=== PATIENT | male | born 1950 | race Caucasian/White ===

== ENCOUNTER 2022-12-29 05:01 | Observation (INO) ==
--- NOTE | 2022-12-03 10:16 | PAT Medication Instructions ---
Medication Instructions Date of Service December 03, 2022 Home Medications acetaminophen 500 mg tablet 1,000 mg PO BID amoxicillin 500 mg tablet 500 mg PO TID apixaban 5 mg tablet (Eliquis) 5 mg PO BID diclofenac sodium 1 % topical gel (Voltaren Arthritis Pain) 2 g topical QID PRN diphenhydramine 25 mg-acetaminophen 500 mg tablet (Acetaminophen PM) 2 tab PO HS hydrochlorothiazide 12.5 mg tablet 12.5 mg PO QPM hydrocodone 5 mg-acetaminophen 325 mg tablet 1 - 2 tab PO Q6H PRN lisinopril 10 mg tablet 10 mg PO QPM metoprolol succinate 25 mg tablet,extended release 24 hr 25 mg PO QPM multivitamin 1 tab PO QPM omeprazole 20 mg capsule,delayed release 20 mg PO QAM ASK your prescriber and surgeon apixaban 5 mg tablet (Eliquis) 5 mg PO BID(in order for spinal or epidural anesthesia, Eliquis needs to be stopped 72 hours/3 days before surgery. Please check if okay with doctor that prescribes this to you) STOP taking 24 hours before surgery diclofenac sodium 1 % topical gel (Voltaren Arthritis Pain) 2 g topical QID PRN Take morning of surgery With a small sip of water, OTHERWISE NOTHING TO EAT OR DRINK AFTER MIDNIGHT: acetaminophen 500 mg tablet 1,000 mg PO BID amoxicillin 500 mg tablet 500 mg PO TID hydrocodone 5 mg-acetaminophen 325 mg tablet 1 - 2 tab PO Q6H PRN(if needed) omeprazole 20 mg capsule,delayed release 20 mg PO QAM Take evening before surgery acetaminophen 500 mg tablet 1,000 mg PO BID amoxicillin 500 mg tablet 500 mg PO TID diphenhydramine 25 mg-acetaminophen 500 mg tablet (Acetaminophen PM) 2 tab PO HS hydrochlorothiazide 12.5 mg tablet 12.5 mg PO QPM hydrocodone 5 mg-acetaminophen 325 mg tablet 1 - 2 tab PO Q6H PRN(if needed) lisinopril 10 mg tablet 10 mg PO QPM metoprolol succinate 25 mg tablet,extended release 24 hr 25 mg PO QPM multivitamin 1 tab PO QPM Other Notes If you have any questions please call us at [phone] or [phone] or [phone] or [phone]
--- NOTE | 2022-12-03 15:03 | Anesthesiology Consultation ---
Date of Service December 03, 2022 Assessment & Plan (1) Encounter for pre-operative examination: - pending PCP response to optimization form. - pt reported several episodes of bright red blood per rectum in recent weeks. He denies contacting PCP. Case discussed with Dr. Marie who advised sending optimization form to PCP. - dental pain, on amoxicillin. Paula with surgeon's office made aware, she states she will further discuss with patient and surgeon. - Eliquis instructions: advised to check with prescriber if acceptable to hold x 3 days prior to surgery to receive neuraxial anesthesia. - cardiology 11/30/22 [facility]: "...moderate aortic root enlargement 4.6 cm with mild ascending aortic enlargement 4.2 cm...paroxysmal atrial fibrillation...paroxysmal afib...went for nuclear stress testing last week, which unfortunately was non diagnostic due to caffeine consumption prior to test...repeat stress images will be later this week...found to have paroxysmal afib on ZIO...dyspnea reported, but stable...Eliquis acceptable to hold for 2 days prior to right hip surgery...repeat stress images...future hip replacement surgery-await repeat nuclear stress images..." Cardiology clearance 12/02/22: "...repeat nuclear stress imaging was negative for inducible ischemia...no further cardiac testing warranted prior to planned orthopedic surgery..." - Outpatient joint assessment: Patient is currently scheduled for inpatient pathway. If re-evaluated pending system levels during current pandemic/surgeon requests outpatient pathway, patient is not acceptable candidate for outpatient joint program from anesthesia standpoint. Chart Review Chart Review: Pending: Refer to Additional Notes / Consult section and Patient seen in Pre Admission Testing Teaching & Discussion Pre-Anesthesia Teaching/Discussion Notes: Instructed NPO after midnight before surgery, except medications with 15 cc of water. Medication instructions provided according to the PAT guidelines. History Surgery Operation Date: 12/29/22 10:40 Proposed Procedures p Right Total Hip Arthroplasty - Chapo High MD Height/Weight Height: 5 ft 11 in Weight: 98 kg Allergies Allergy/AdvReac Type Severity Reaction Status Date / Time formaldehyde Allergy Rash Verified 12/03/22 09:33 Medications Home Medications Medication Instructions Recorded Confirmed Last Taken Wheeled Walker #1 ea 12/03/22 12/03/22 Unknown acetaminophen 500 mg tablet 1,000 mg PO BID 12/03/22 12/03/22 Unknown amoxicillin 500 mg tablet 500 mg PO TID 12/03/22 12/03/22 Unknown apixaban 5 mg tablet (Eliquis) 5 mg PO BID 12/03/22 12/03/22 Unknown diclofenac sodium 1 % topical gel 2 g topical QID PRN Pain 12/03/22 12/03/22 Unknown (Voltaren Arthritis Pain) diphenhydramine 25 2 tab PO HS 12/03/22 12/03/22 Unknown mg-acetaminophen 500 mg tablet (Acetaminophen PM) hydrochlorothiazide 12.5 mg tablet 12.5 mg PO QPM 12/03/22 12/03/22 Unknown hydrocodone 5 mg-acetaminophen 325 1 - 2 tab PO Q6H PRN Pain 12/03/22 12/03/22 Unknown mg tablet lisinopril 10 mg tablet 10 mg PO QPM 12/03/22 12/03/22 Unknown metoprolol succinate 25 mg 25 mg PO QPM 12/03/22 12/03/22 Unknown tablet,extended release 24 hr multivitamin 1 tab PO QPM 12/03/22 12/03/22 Unknown omeprazole 20 mg capsule,delayed 20 mg PO QAM 12/03/22 12/03/22 Unknown release Past Medical History Medical History (Updated 12/03/22 @ 15:17 by Qiana Catnu PA-C) Aortic root enlargement 4.6 cm, 4.2 mild ascending aortic enlargement Atrial enlargement, right Atrial fibrillation following with Dr. Xie. On eliquis/bb. Diverticulosis GERD (gastroesophageal reflux disease) controlled, stable per pt Hearing loss left ear History of sciatica HTN (hypertension) controlled, stable per pt IBS (irritable bowel syndrome) Neuropathy feet Pain, dental reason for abx Snores upcoming sleep study after surgery Patient denies h/o stroke, seizures, heart attack, heart failure, DM, blood clots or blood transfusions. Exercise / Class Metabolic Activity II 4-5 Yardwork/Stairs/Walk up hill (denies chest discomfort or shortness of breath with 1 FOS) Past Surgical History Surgical History (Updated 12/03/22 @ 15:14 by Qiana Cantu PA-C) History of arthroscopy of left knee History of carpal tunnel surgery of right wrist History of colonoscopy History of toe surgery for ingrown toenail S/P medial meniscectomy of left knee Past Anesthesia History Other (PONV) History of PONV History of PONV (denies needing scop patch) and Hx of Motion Sickness Social History Smoking Status: Former smoker Do You Dip or Chew Tobacco: No Smoking End Date: 30 years ago Hx Alcohol Use: Yes Alcohol type: beer, wine and hard liquor alcohol intake frequency: 0-2 drinks per day Hx Substance Use: Yes substance use type: marijuana (advised) Last Used Substance: Unknown Review of Systems Chronic nonproductive cough since starting lisinopril. Occasional palpitations, rare since starting treatment for afib. Patient denies chest pain, shortness of breath, dyspnea on exertion, witnessed apneas, fever, chills, and wheezing. Physical Exam Vital Signs Vitals BP 129/66 P 91 TEMP 98.1 SP02 94% on RA RESP 18 Physical Full cervical extension range of motion without pain TMD 3.5 finger breadths Mallampati Score 2 Dentition: several chipped, caps/crowns; denies loose teeth, implants or bridges Lungs: normal respiratory effort. Clear throughout to auscultation, no adventitious breath sounds Cardiac: regular rate and rhythm, no murmurs noted Carotid arteries: negative bruit bilat Lab Results Anesthesia Preop Results Results Anesthesia Widget: WBC 9.99 K/ul (4.8-10.8) 12/03/22 Hgb 15.1 g/dl (14.0-18.0) 12/03/22 Hct 43.6 % (42.0-52.0) 12/03/22 Plt 226 K/uL (130-400) 12/03/22 Na 140 mmol/L (136-145) 12/03/22 K 3.5 mmol/L (3.5-5.1) 12/03/22 Cl 105 mmol/L (98-107) 12/03/22 CO2 25 mmol/L (21-32) 12/03/22 BUN 19 mg/dl (6-23) 12/03/22 Creat 0.99 mg/dl (0.6-1.4) 12/03/22 Glucose Level 138 mg/dl (70-99(Fasting)) H 12/03/22 PT 10.4 Seconds (9.0-12.0) 12/03/22 PTT 32.5 Seconds (21.0-31.0) H 12/03/22 INR 1.0 (0.9-1.1) 12/03/22 Blood Type O Positive 12/03/22 Antibody Screen NEGATIVE 12/03/22 Testing Electrocardiogram Date: 12/03/22 Sinus rhythm with atrial runs (3-4 beats), rate 88 bpm Low voltage QRS Possible old inferior infarct Nonspecific ST abnormality anterolateral leads Chest X-Ray Date: 12/03/22 Cardiac silhouette is mildly enlarged. No pneumothorax, large pleural effusion or overt pulmonary edema. Mild right hemidiaphragm elevation with subsegmental right basilar atelectasis. Degenerative changes of the shoulders and spine. IMPRESSION: No acute process. Echocardiogram Date: 09/11/22 EF 55-59% Mild hypokinesis of mid and apical lateral wall Grade I diastolic dysfunction Moderate cLVH Moderately enlarged LA Mild mitral regurgitation Moderately enlarged aortic root at sinuses of Valsalva measuring 4.7 cm Mildly enlarged ascending aorta at 4.3 cm No significant change vs 08/06/21 echo Other Testing Event monitor 09/14/22 Predominant underlying rhythm: sinus rhythm Afib 5% burden ranging 76-176 bpm with associated symptomatic patient events Occasional isolated SVEs Rare SVE couplets and SVE triplets Occasional isolated VEs Rare VE couplets and VE triplets Ventricular bigeminy and trigeminy COVID-19 Risk Screen Screening Information COVID-19 Screen Date: 12/03/22 Exposure 21 Days Family/Household +COVID Last 21 Days: No Exposure 10 Days Any COVID Exposure Last 10 Days: No Symptoms Last 10 Days Experienced COVID Sx Last 10 Days: No + COVID 0-90 Days COVID + in Last 0-90 Days: No
[2022-12-29] MEDS ORDERED: ACETAMINOPHEN 500 MG TAB PO SCH (06:00)
[2022-12-29] MEDS ORDERED: FAMOTIDINE 20 MG TAB PO SCH (06:00)
[2022-12-29] MEDS ORDERED: TRANEXAMIC ACID 1,000 MG **IV Pre-op IV SCH (06:00)
[2022-12-29] MEDS ORDERED: ceFAZolin 2000MG 2,000 MG/15 ML SYR IV SCH (06:00)
[2022-12-29] MEDS ORDERED: CeleBREX 200 MG CAP PO SCH (06:00)
[2022-12-29] MEDS ORDERED: LR 60ML/HR IV SCH (06:00)
[2022-12-29] MEDS ORDERED: METOCLOPRAMIDE HCL 10 MG TABLET PO SCH (06:00)
[2022-12-29] MEDS ORDERED: LR 500ML BOLUS, THEN 15ML/HR IV SCH (06:00)
[2022-12-29] MEDS ORDERED: BUPIVACAINE 0.5 % 5 MG/1 ML PF 10ML VIAL ONE (06:26)
[2022-12-29] MEDS ORDERED: MIDAZOLAM HCL 1 MG/ML 2ML VIAL ONE (06:36)
[2022-12-29] MEDS ORDERED: fentaNYL citrate PF 100 MCG/2 ML VIAL ONE (06:36)
--- NOTE | 2022-12-29 06:47 | History & Physical Bridge Note ---
Date of Service December 29, 2022 History & Physical Bridge Note I have examined the patient, reviewed the History & Physical and in the interval since the performance of the History & Physical I have noted the following changes of clinical significance: no changes noted
[2022-12-29] MEDS ORDERED: BUPIVACAINE/EPINEPHRINE 0.5% MPF 1:200,000 30 ML VIAL ONE (06:48)
[2022-12-29] MEDS ORDERED: DEXAMETHASONE SOD INJ 4 MG/ML VIAL ONE (07:12)
[2022-12-29] MEDS ORDERED: ONDANSETRON INJ 2 MG/ML 2 ML VIAL ONE (07:12)
[2022-12-29] MEDS ORDERED: SUCCINYLCHOLINE 100MG/5ML SYR IV ONE (07:12)
[2022-12-29] MEDS ORDERED: ROCURONIUM BROMIDE 10 MG/ML 5 ML VIAL IV ONE (07:12)
[2022-12-29] MEDS ORDERED: PROPOFOL IV EMULSION 10 MG/ML 20 ML VIAL IV ONE (07:12)
[2022-12-29] MEDS ORDERED: LIDOCAINE 2% MPF LOCAL 5 ML VIAL INFIL ONE (07:12)
[2022-12-29] MEDS ORDERED: PHENYLEPHRINE 100MCG/ML 5ML SYR ONE (07:13)
[2022-12-29] MEDS ORDERED: ePHEDrine sulfate 50 MG/ML SYR ONE (07:13)
[2022-12-29] MEDS ORDERED: GLYCOPYRROLATE 0.2 MG/ML VIAL ONE (07:47)
[2022-12-29] MEDS ORDERED: NEOSTIGMINE METHYLSULFATE 1 MG/ML 10ML VIAL ONE (07:47)
[2022-12-29] MEDS ORDERED: PHENYLEPHRINE HCL 10 MG/ML VIAL ONE (08:10)
[2022-12-29] MEDS ORDERED: ePHEDrine sulfate 50 MG/ML AMP ONE (08:16)
--- NOTE | 2022-12-29 08:46 | Operative Report ---
PG Post Operative Report Pre & Post Diagnosis Operation Date: 12/29/22 07:00 Pre-Op Diagnosis: Right Hip Advanced Degenerative Joint Disease Post-Op Diagnosis: Right Hip Advanced Degenerative Joint Disease I identified the patient and participated in the time-out.: Yes Procedure Operation Date: 12/29/22 07:00 Actual Procedures p Right Total Hip Arthroplasty--Uncemented(Right) - Chapo High MD Surgeon Chapo High MD Workforce Management Consultant None Estimated Blood Loss 200 Findings Consistent with Post-Op Diagnosis Operative findings were advanced right hip DJD. He had a extensive grade 4 [id number] disease of the femoral head and acetabulum. Moderate-sized joint effusion. Specimens Right femoral head sent for pathology Drains None Anesthesia Type General Complications none Disposition Accompanied Patient To Recovery: No Indications Patient is a 72-year-old gentleman said a several history of increasing right hip pain discomfort unresponsive to conservative treatment. X-rays show advanced right hip arthritis which progressed over time. He elected proceed with surgical treatment. The patient is on Eliquis and took dose about 48 hours preoperatively so a general anesthetic was implemented. Description of Procedure Operative implants consist of: 1 Biomet G7 size 58 mm acetabular shell. 2. 6.5 cancellous acetabular screws 1 of 35 mm in length 1 of 30 mm length. 3. Waldron hole limiter. 4. Highly cross-linked polyethylene liner with a 58 mm outer diameter and 40 mm inner diameter. 5. DePuy Corail I size 11 KLA femoral stem. 6. +5/40 mm ceramic articular ball. The patient was taken the operating, identified, placed on the operating table supine position protectors were properly padded. IV antibiotics tried by anesthesia team. General anesthetic was implemented by the anesthesia team due to his use of Eliquis with last dose being 48 hours ago. The patient was then placed in the left lateral cubitus position. Axillary roll was placed. A Stulberg hip positioner was used for positioning. The right hip and leg were then prepped and draped in usual sterile fashion. A posterolateral approach to the right hip was then performed through a curvilinear incision centered over the greater trochanter. Sharp dissection was carried through subcutaneous tissue down to the IT band gluteal fascia the IT band gluteal fascia incised longitudinally in line with skin incision. The underlying greater bursa was excised. The piriformis and external rotators were tagged and taken off the posterior aspect of the hip joint capsule. Great care was taken throughout the procedure protect sciatic nerve at all times. Hip was internally rotated and dislocated. A femoral neck osteotomy cut was made with a Final Cut 15 mm above the lesser trochanter. Femoral head was removed and sent for pathology. The femur was retracted anteriorly. Attention drawn the acetabulum. The acetabular labrum was excised. The pulmonary fat was excised. Sequential reaming the acetabular was then performed again with a size 47 reamer and progressing up to 57. I did reamed a little bit with a 58 reamer and then a 58 mm cup was placed in about 40 degrees lateral opening and 20 degrees of anteversion. It was fixed with two 6.5 cancellous acetabular screws. An anterior acetabular osteophyte was removed. Trial liner was placed. Attention drawn the femur. The proximal femur was entered with cookie-cutter followed by canal finder. I then broached beginning with size 8 and progressed up to 11. Got excellent fit 11. Could not quite get this quite down to the calcar. Then trialed the hip and the +5 articular ball provided full stability in full extension and external rotation flexion to 90 degrees internal Tatian over 50 degrees. Leg length seemed appropriate and soft tissue tension seemed appropriate. We elect to place these implants. All trial implants were removed. An apex hole luminary was placed. Highly cross-linked polyethylene liner was placed. A size 11 KLA femoral stem was impacted in position. A +5/40 mm ceramic articular ball was placed. Hip was located. Once again found to be stable. Attention drawn toward closing. The wounds irrigated cosigns pulsatile lavage solution. I did inject locally with 60 cc of half percent Marcaine with epinephrine. Posterior capsule and external rotators were then repaired through drill holes in the posterior trochanter with #2 Tycron suture. The IT band gluteal fascia then closed with #1 PDS suture running fashion. Subcutaneous tissue then closed 2 layers the deep layer #1 Vicryl suture and subcutaneous tissues with 2-0 Dexon suture in a buried interrupted fashion. Skin was closed skin angi. Leg was then cleaned and dried and sterile dressed with Xeroform, 4 fours, ABD pad, foam tape was applied. The patient then brought out of general anesthesia and transferred to the recovery in stable condition. The patient tolerated the procedure well and there were no complications. I attest to the content of the Intraoperative Record and any orders documented therein. Any exceptions are noted below.
[2022-12-29] MEDS ORDERED: HYDROmorphone INJ 1 MG/ML SYRINGE IV PRN (09:04)
[2022-12-29] MEDS ORDERED: ATROPINE SULFATE 0.1 MG/ML 10ML SYR IV PRN (09:04)
[2022-12-29] MEDS ORDERED: ePHEDrine sulfate 50 MG/ML AMP IV PRN (09:04)
[2022-12-29] MEDS ORDERED: ONDANSETRON INJ 2 MG/ML 2 ML VIAL IV PRN ×2 (09:04→10:53)
[2022-12-29] MEDS ORDERED: fentaNYL citrate PF 100 MCG/2 ML VIAL IV PRN (09:04)
[2022-12-29] MEDS ORDERED: NALOXONE HCL 0.4 MG/1 ML VIAL/CARP IV PRN ×2 (09:04→10:53)
[2022-12-29] MEDS ORDERED: PROMETHAZINE HCL 12.5 MG in SODIUM CHLORIDE 0.9% 50 ML IV PRN (09:04)
[2022-12-29] MEDS ORDERED: FLUMAZENIL 0.1 MG/1 ML 10 ML VIAL IV PRN (09:04)
[2022-12-29] MEDS ORDERED: METOPROLOL TARTRATE 1 MG/ML VIAL IV ONE (09:18)
[2022-12-29] MEDS: METOPROLOL TARTRATE 1 MG/ML VIAL IV PRN ×5 (09:19→09:49)
--- NOTE | 2022-12-29 09:32 | XRay Report ---
XR hip 1V RT w pelvis CLINICAL HISTORY: IN PACU - Post Surgical TECHNIQUE: 2 views of the right hip and single frontal view of the pelvis were obtained. Comparison: Comparison is made to hip radiographs November 26, 2022 FINDINGS: Patient is status post total hip arthroplasty with expected postsurgical changes including soft tissu e swelling and subcutaneous emphysema. IMPRESSION: Expected postoperative appearance status post placement of total hip arthroplasty. ACT 112: Negative or not required by law. Electronically signed by: Jason Najera M.D. 12/29/2022 9:31 AM
--- NOTE | 2022-12-29 10:11 | Hospitalist Consultation ---
Date of Consultation December 29, 2022 Assessment & Plan (1) S/P total knee arthroplasty: (2) Degenerative joint disease of right hip: (3) HTN (hypertension): (4) Aortic root enlargement: (5) Atrial fibrillation with RVR: - Hospitalist consulted for onset of A-fib after surgical procedure, right TKA by Dr. High on 12/29/2022 -Trial of IV Lopressor 5 mg x 1, no effect, will try 1 more time if not may require rate controlling drip in PCU. - BP is slightly soft at 107/80 - Checking BMP, TSH and cbc now - Patient diagnosed with afib 1 month ago, has been maintaining on Eliquis 5 mg twice daily, metoprolol succinate 25 every afternoon. His last dose of Eliquis was on 12/27 in the morning. Due to this last time of dosing he was unable to have a spinal per anesthesia, instead had general - Will hold lisinopril, HCTZ for now. Pending course today resume metoprolol 25 mg QPM. - Alcohol use: 2 drinks daily (see HPI), pt denies hx of withdrawal and agrees to attempt to cut back on such due to newly diagnosed afib. Discussion held at bedside. - Smokes vape with marijuana daily 2-3x DVT ppx: teds, scds, resume eliquis per primary team CODE: Full Dispo: From home, remain in PCU overnight Thank you for involving us in the care of Mr. Olsen. If you have any questions or concerns please do not hesitate to call. At this time medicine will follow along. A total of 45 minutes were spent with greater than 50% of that time face to face with the patient, personally reviewing all current laboratories, imaging studies, past medication reconciliation, outpatient chart review, and discussion with specialists to collaborate care for the patient with attending. Please see attending documentation for corrections and/or additions. Supervising Physician Co-Signing Physician Notes Patient was seen and examined independently. Patient is in ICU. Earlier had rapid A fib and was placed on a low dose cardizem drip. Now in sinus rhythm. Will give his evening Toprol early and discontinue cardizem drip. Will hold HCTZ and lisinopril for now. Resume when BP has improved further History of Present Illness Reason for Consultation: Medical management, atrial fib Requesting Physician: Dr. High Attending Physician: Chapo High MD History of Present Illness This is a 72 yo M with PMhx of atrial fibrillation maintained on eliquis and metoprolol who presented to [facility] for elective TKA by Dr. High. He was diagnosed with this about 1 month ago. The patient reports that he has been taking A-fib and metoprolol for this past 1 month time since diagnosis consistently, it was found while he was being worked up for outpatient colonoscopy. He denies feeling A-fib with palpitations, lightheadedness or dizziness. His employment interviewer as an outpatient is Dr. Xie. He denies any shortness of breath, O2 is on in the PACU, but does not require any at home. He admits to drinking alcohol, 2 drinks daily with either 1 beer and a shot of [place] or a glass of sweet [place]. He admits to smoking cannabis via vape several times daily in the evening to help him relax. Other past medical history includes aortic root enlargement at 4.6 cm, HTN, diverticulosis, GERD, peripheral neuropathy. Allergies Allergy/AdvReac Type Severity Reaction Status Date / Time formaldehyde Allergy Rash Verified 12/29/22 05:28 Home Medications Medication Instructions Recorded Confirmed Type Wheeled Walker #1 ea 12/03/22 12/29/22 Rx acetaminophen 500 mg tablet 500 mg PO Q8H 12/03/22 12/29/22 History apixaban 5 mg tablet (Eliquis) 5 mg PO BID 12/03/22 12/29/22 History hydrochlorothiazide 12.5 mg tablet 12.5 mg PO QPM 12/03/22 12/29/22 History lisinopril 10 mg tablet 10 mg PO QAM 12/03/22 12/29/22 History metoprolol succinate 25 mg 25 mg PO QPM 12/03/22 12/29/22 History tablet,extended release 24 hr multivitamin 1 tab PO QPM 12/03/22 12/29/22 History omeprazole 20 mg capsule,delayed 20 mg PO QAM 12/03/22 12/29/22 History release Patient History Medical History (Updated 12/29/22 @ 12:02 by Ramon Haq MD) Aortic root enlargement 4.6 cm, 4.2 mild ascending aortic enlargement Atrial enlargement, right Chronic a-fib Diverticulosis GERD (gastroesophageal reflux disease) controlled, stable per pt Hearing loss left ear History of sciatica HTN (hypertension) controlled, stable per pt Hypokalemia IBS (irritable bowel syndrome) Neuropathy feet Pain, dental reason for abx Postoperative hypoxemia Snores upcoming sleep study after surgery Surgical History (Updated 12/29/22 @ 10:44 by Argenis Her PA-C) History of arthroscopy of left knee History of carpal tunnel surgery of right wrist History of colonoscopy History of toe surgery for ingrown toenail S/P medial meniscectomy of left knee Social History Smoking Status: Never smoker Smoking End Date: 30 years ago; Second Hand Exposure: No; Do You Dip or Chew Tobacco: No; Tobacco Cessation Education Requested by Patient: No Hx Alcohol Use: Yes Alcohol type: beer Hx Substance Use: Yes Last Used Substance: Unknown Preferred Language: Kinyarwanda Communication Ability: Effective Cabinet Worker Required: No Beliefs That Will Affect Care: None Current Living Situation: Spouse Feels Safe at Home: Yes Safety Concerns: Feels Safe At This Time Assistive Devices: Cane and Walker Review of Systems Review of Systems: Constitutional: No fever, sweats or chills Eyes: No diplopia, no worsening or blurred vision ENT: normal hearing, no trouble swallowing Respiratory: No cough, sputum, dyspnea at rest or on exertion Cardiovascular: No chest pain, tightness or palpitations Abdomen: No pain, nausea, vomiting, diarrhea or constipation Musculoskeletal: No joint pain, calf pain, swelling Neurologic: No weakness, numbness/tingling, or balance problems Psychiatric: No anxiety or depression Skin: No rash or itch Physical Exam Physical Exam: General: awake, alert, no apparent distress Head: Normocephalic, atraumatic ENT: PERRL, EOMI, no pharyngeal exudate, mucous membranes moist Chest: Clear to auscultation, on room air, no adventitious breath sounds Cardiac: irregularly irregular with HR in the 110-120s while at bedside, no murmur, no JVD, normal peripheral pulses, good capillary refill Abdominal: NABS x 4 quadrants, soft, nondistended, nontender to palpation, no rebound or guarding Extremities: Normal inspection, no peripheral edema or erythema, calfs nontender to palpation Psych: Normal mood and affect Neuro: AAO x 3, strength intact bilaterally and rated 5/5, no motor deficits, speech is clear, no peripheral sensory deficits Results & Data Results & Data ([facility]) Vital Signs (Past 12 Hours) Vital Signs Temp Pulse Pulse Pulse Resp BP BP 12/29/22 09:55 106 H 19 109/74 12/29/22 09:49 111 H 106/70 12/29/22 09:45 110 H 17 106/70 12/29/22 09:43 123 H 108/68 12/29/22 09:35 120 H 14 96/75 L 12/29/22 09:29 120 H 96/75 L 12/29/22 09:25 114 H 18 115/77 12/29/22 09:24 118 H 115/77 12/29/22 09:19 128 H 102/81 12/29/22 09:15 129 H 19 102/81 12/29/22 09:05 112 H 20 107/68 12/29/22 08:55 120 H 15 104/80 12/29/22 08:45 36.3 C L 114 H 16 109/73 12/29/22 05:40 36.5 C 69 20 133/85 Pulse Ox O2 Del Method O2 Flow Rate 12/29/22 09:55 94 Nasal Cannula 4 12/29/22 09:49 12/29/22 09:45 94 Nasal Cannula 4 12/29/22 09:43 12/29/22 09:35 95 Nasal Cannula 4 12/29/22 09:29 12/29/22 09:25 97 Nasal Cannula 4 12/29/22 09:24 12/29/22 09:19 12/29/22 09:15 95 Nasal Cannula 4 12/29/22 09:05 90 Nasal Cannula 4 12/29/22 08:55 92 Nasal Cannula 4 12/29/22 08:45 89 L Oxymask 10 12/29/22 05:40 95 Room Air
[2022-12-29] MEDS ORDERED: KETOROLAC 30 MG/ML VIAL ONE (10:12)
--- NOTE | 2022-12-29 10:23 | Anesthesiology Progress Note ---
Date of Service December 29, 2022 Anesthesia Post Procedure Vital Signs Vital Signs: Temp Pulse Pulse Pulse Resp BP BP 12/29/22 10:15 36.3 C L 116 H 19 108/83 12/29/22 10:05 133 H 17 99/74 L 12/29/22 09:55 106 H 19 109/74 12/29/22 09:49 111 H 106/70 12/29/22 09:45 110 H 17 106/70 12/29/22 09:43 123 H 108/68 12/29/22 09:35 120 H 14 96/75 L 12/29/22 09:29 120 H 96/75 L 12/29/22 09:25 114 H 18 115/77 12/29/22 09:24 118 H 115/77 12/29/22 09:19 128 H 102/81 12/29/22 09:15 129 H 19 102/81 12/29/22 09:05 112 H 20 107/68 12/29/22 08:55 120 H 15 104/80 12/29/22 08:45 36.3 C L 114 H 16 109/73 12/29/22 05:40 36.5 C 69 20 133/85 Pulse Ox O2 Del Method O2 Flow Rate 12/29/22 10:15 96 Nasal Cannula 4 12/29/22 10:05 94 Nasal Cannula 4 12/29/22 09:55 94 Nasal Cannula 4 12/29/22 09:49 12/29/22 09:45 94 Nasal Cannula 4 12/29/22 09:43 12/29/22 09:35 95 Nasal Cannula 4 12/29/22 09:29 12/29/22 09:25 97 Nasal Cannula 4 12/29/22 09:24 12/29/22 09:19 12/29/22 09:15 95 Nasal Cannula 4 12/29/22 09:05 90 Nasal Cannula 4 12/29/22 08:55 92 Nasal Cannula 4 12/29/22 08:45 89 L Oxymask 10 12/29/22 05:40 95 Room Air Pain Intensity Left Hip: Pain Intensity: 2 Transfer of Care Handoff Completed per policy Notes Mental Status: alert / awake / arousable Patient Amnestic to Procedure: Yes Nausea / Vomiting: adequately controlled Pain: adequately controlled Airway Patency, RR, SpO2: stable & adequate BP & HR: stable & adequate Hydration State: stable & adequate Anesthetic Complications: no major complications apparent Notes: Patient has Hx/o A Fib; was in SR pre and intraop; converted to AFib in PACU; Hospitalist and Automotive Mechanic have been contacted and consulted and have assumed medical care of Pt. Pt to be transferred to PCU.
--- NOTE | 2022-12-29 10:38 | Electrocardiogram Report ---
Test Reason : Blood Pressure : / mmHG Vent. Rate : 117 BPM Atrial Rate : 159 BPM P-R Int : 000 ms QRS Dur : 094 ms QT Int : 294 ms P-R-T Axes : 000 -05 255 degrees QTc Int : 410 ms Atrial fibrillation with rapid ventricular response Possible Old Inferior infarct (cited on or before 03-DEC-2022) Nonspecific ST abnormality Anterolateral leads Abnormal ECG When compared with ECG of 03-DEC-2022 15:36, Atrial fibrillation has replaced Sinus rhythm HR has increased by 29 bpm Confirmed by Marco Roman ([id number]) on 12/29/2022 10:38:34 AM Referred By: Chapo High Confirmed By:Marco Roman
[2022-12-29] MEDS ORDERED: ALUMINUM/MAGNESIUM SUSP 30 ML UDC PO PRN (10:53)
[2022-12-29] MEDS ORDERED: bisacodyL 10 MG SUPP PR PRN (10:53)
[2022-12-29] MEDS ORDERED: METOCLOPRAMIDE HCL INJ 5 MG/ML 2 ML VIAL IV PRN (10:53)
[2022-12-29] MEDS ORDERED: DOCUSATE SODIUM/SENNA 50/8.6MG TAB PO SCH (10:53)
[2022-12-29] MEDS ORDERED: MAGNESIUM HYDROXIDE SUSP 30 ML UDC PO PRN (10:53)
[2022-12-29] MEDS: DOCUSATE SODIUM 100 MG CAP PO SCH ×2 (11:13→20:03)
[2022-12-29 11:14] LABS: Hematocrit (blood only) 40.6 % (42.0-52.0); Hemoglobin 14.5 g/dl (14.0-18.0); Mean Corpuscular Hemoglobin 34.6 pg (25.0-34.0); Mean Corpuscular Hgb Conc 35.7 g/dL (32.0-36.0); Mean Corpuscular Volume 96.9 fL (80.0-100.0); Mean Platelet Volume 9.5 fL (9.4-12.4); Platelet Count 198 K/uL (130-400); RDW Coefficient of Variation 13.2 % (11.5-14.5); RDW Standard Deviation 47.2 fL (36.4-46.3); Red Blood Count 4.19 M/uL (4.70-6.10)
[2022-12-29] MEDS: traMADol HCL 50 MG TABLET PO PRN (11:15)
[2022-12-29] MEDS: SODIUM CHLORIDE 0.9% 1000ML 1,000 ML IV SCH ×2 (11:18→20:03)
[2022-12-29 11:26] LABS: BUN Creatinine Ratio 18.4 (10-20); Calcium 9.2 mg/dl (8.5-10.1); Creatinine Clr Calc Pharmacy 84.3 ml/min; Est GFR (African American) 89.5 ml/min; Est GFR (Non-African American) 77.3 ml/min; Potassium 3.2 mmol/L (3.5-5.1)
[2022-12-29] MEDS: MULTIVITAMIN TAB PO SCH (11:33)
[2022-12-29] MEDS: PANTOprazole 40 MG TAB PO SCH (11:33)
[2022-12-29] MEDS: TAMSULOSIN HCL 0.4 MG CAP PO SCH (11:39)
[2022-12-29] MEDS ORDERED: POTASSIUM CHLORIDE 20 MEQ/15 ML UDC PO STA (11:45)
--- NOTE | 2022-12-29 11:47 | Critical Care Consultation ---
Date of Consultation December 29, 2022 Assessment & Plan (1) Atrial fibrillation with RVR: Discussed with hospitalist service. They are going to start the patient on a Cardizem infusion. He is hemodynamically stable otherwise. TSH and CBC unremarkable. We will replace potassium as it is currently 3.2. Check magnesium level. Maintain potassium above 4 and magnesium above 2. (2) Postoperative hypoxemia: Obtain chest x-ray. Initiate incentive spirometry. Likely postoperative a telectasis. Patient relates a remote smoking history from age [age]. He was mostly a social smoker. Wean oxygen as able. (3) Degenerative joint disease of right hip: Status post right hip arthroplasty. Management per orthopedic surgery. Restart anticoagulation based on orthopedic surgery recommendations. (4) Hypokalemia: Replace electrolytes per protocol. Plan Disposition per primary service. Discussed with bedside nurse and hospitalist service. Thank you for allowing us to participate in the care of this patient. Please call with questions. History of Present Illness Reason for Consultation: "Atrial fibrillation" from Dr. High of orthopedics. Attending Physician: Chapo High MD History of Present Illness Electronic medical record reviewed in detail. History obtained from patient and his . 72-year-old male status post right total hip arthroplasty which was electively scheduled for today. Patient is chronically on Eliquis for atrial fibrillation and metoprolol. In the PACU he was requiring supplemental oxygen and was found to have atrial fibrillation with rapid ventricular response. Hospital service, cardiology and ICU were consulted for assistance in managing atrial fibrillation. Patient is hemodynamically stable aside for heart rates in the 130s. Respiratory rate 18. CBC with minimal leukocytosis likely reactive secondary to surgery. No significant anemia. BMP reveals mild hypokalemia. TSH unremarkable. Patient relates that he was supposed to stop his Eliquis 72 hours prior to the procedure but only stopped 48 hours prior to. He ended up getting general anesthesia as opposed to spinal anesthesia. Preoperative chest x-ray 12/03/2022 revealed mild right hemidiaphragm elevation and atelectasis. Patient is resting comfortably at this time with supplemental oxygen. He is eating his lunch. His is at bedside. He denies any shortness of breath, cough, fevers, chills or night sweats. He does have soreness to his right knee and hip region. Echo 09/11/2022 with an LV 55- 59%. Grade 1 diastolic dysfunction. Aortic root dilation of 4.3 cm and increased to 4.7 cm with Valsalva. Allergies Allergy/AdvReac Type Severity Reaction Status Date / Time formaldehyde Allergy Rash Verified 12/29/22 05:28 Home Medications Medication Instructions Recorded Confirmed Type Wheeled Walker #1 ea 12/03/22 12/29/22 Rx acetaminophen 500 mg tablet 500 mg PO Q8H 12/03/22 12/29/22 History apixaban 5 mg tablet (Eliquis) 5 mg PO BID 12/03/22 12/29/22 History hydrochlorothiazide 12.5 mg tablet 12.5 mg PO QPM 12/03/22 12/29/22 History lisinopril 10 mg tablet 10 mg PO QAM 12/03/22 12/29/22 History metoprolol succinate 25 mg 25 mg PO QPM 12/03/22 12/29/22 History tablet,extended release 24 hr multivitamin 1 tab PO QPM 12/03/22 12/29/22 History omeprazole 20 mg capsule,delayed 20 mg PO QAM 12/03/22 12/29/22 History release Patient History Medical History (Updated 12/29/22 @ 12:02 by Ramon Haq MD) Aortic root enlargement 4.6 cm, 4.2 mild ascending aortic enlargement Atrial enlargement, right Chronic a-fib Diverticulosis GERD (gastroesophageal reflux disease) controlled, stable per pt Hearing loss left ear History of sciatica HTN (hypertension) controlled, stable per pt Hypokalemia IBS (irritable bowel syndrome) Neuropathy feet Pain, dental reason for abx Postoperative hypoxemia Snores upcoming sleep study after surgery Surgical History (Updated 12/29/22 @ 10:44 by Argenis Her PA-C) History of arthroscopy of left knee History of carpal tunnel surgery of right wrist History of colonoscopy History of toe surgery for ingrown toenail S/P medial meniscectomy of left knee Social History Smoking Status: Never smoker Smoking End Date: 30 years ago; Second Hand Exposure: No; Do You Dip or Chew Tobacco: No; Tobacco Cessation Education Requested by Patient: No Hx Alcohol Use: Yes Alcohol type: beer Hx Substance Use: Yes Last Used Substance: Unknown Preferred Language: Belgian Communication Ability: Effective Vp Publisher Development Required: No Beliefs That Will Affect Care: None Current Living Situation: Spouse Feels Safe at Home: Yes Safety Concerns: Feels Safe At This Time Assistive Devices: None Review of Systems Review of Systems: All systems reviewed & are unremarkable except as noted in HPI & below Physical Exam Physical Exam: Constitutional: Patient appears to be of their stated age. Patient is in no apparent distress. Patient is well-developed. Eyes: Pupils are equal round and reactive to light. Conjunctivae are normal. Anicteric sclera. Ears nose, mouth and throat: Deferred. Neck: Trachea is midline. Visual inspection is normal. Respiratory: Mild expiratory wheeze in the lower lobes. Diminished. Cardiovascular: Irregularly irregular. Tachycardic. No murmurs. No edema. Gastrointestinal: Normal bowel sounds, soft, nontender and nondistended. No hepatosplenomegaly noted. Musculoskeletal: No cyanosis. Patient is able to move all extremities. Strength is 5 out of 5 in the upper and lower extremities. Skin: No rashes, warm dry and intact. Neurologic: No obvious focal neurological deficits seen. Psychiatric: Alert and oriented x3 with a euthymic affect. Results & Data Results & Data ([facility]) Vital Signs (Past 12 Hours) Vital Signs Temp Pulse Pulse Pulse Resp BP BP 12/29/22 10:59 36.5 C 133 H 18 121/80 12/29/22 10:30 127 H 17 107/80 12/29/22 10:15 36.3 C L 116 H 19 108/83 12/29/22 10:05 133 H 17 99/74 L 12/29/22 09:55 106 H 19 109/74 12/29/22 09:49 111 H 106/70 12/29/22 09:45 110 H 17 106/70 12/29/22 09:43 123 H 108/68 12/29/22 09:35 120 H 14 96/75 L 12/29/22 09:29 120 H 96/75 L 12/29/22 09:25 114 H 18 115/77 12/29/22 09:24 118 H 115/77 12/29/22 09:19 128 H 102/81 12/29/22 09:15 129 H 19 102/81 12/29/22 09:05 112 H 20 107/68 12/29/22 08:55 120 H 15 104/80 12/29/22 08:45 36.3 C L 114 H 16 109/73 12/29/22 05:40 36.5 C 69 20 133/85 Pulse Ox O2 Del Method O2 Flow Rate 12/29/22 10:59 94 Nasal Cannula 4 12/29/22 10:30 95 Nasal Cannula 4 12/29/22 10:15 96 Nasal Cannula 4 12/29/22 10:05 94 Nasal Cannula 4 12/29/22 09:55 94 Nasal Cannula 4 12/29/22 09:49 12/29/22 09:45 94 Nasal Cannula 4 12/29/22 09:43 12/29/22 09:35 95 Nasal Cannula 4 12/29/22 09:29 12/29/22 09:25 97 Nasal Cannula 4 12/29/22 09:24 12/29/22 09:19 12/29/22 09:15 95 Nasal Cannula 4 12/29/22 09:05 90 Nasal Cannula 4 12/29/22 08:55 92 Nasal Cannula 4 12/29/22 08:45 89 L Oxymask 10 12/29/22 05:40 95 Room Air Coding Level of Care Code 43627 IN/OBS CONSULT LVL 4,60M Diagnoses Atrial fibrillation with RVR I48.91 Postoperative hypoxemia R09.02; Z98.890 Degenerative joint disease of right hip M16.11 Hypokalemia E87.6
[2022-12-29] MEDS ORDERED: dilTIAZem HCl 5 MG/ML 5 ML VIAL IV STA (12:06)
[2022-12-29] MEDS ORDERED: STAT IV Infusion **Titration per Protocol STA (12:06)
[2022-12-29] MEDS: POTASSIUM CHLORIDE / WTR 10 MEQ/100 ML PLCT IV SCH ×2 (12:09→13:12)
[2022-12-29] MEDS: HYDROmorphone INJ 0.5 MG/0.5 ML SYR IV PRN ×3 (12:10→20:03)
[2022-12-29] MEDS ORDERED: dilTIAZem HCL 125 MG in DEXTROSE 5% 100 ML IV SCH (12:15)
--- NOTE | 2022-12-29 12:53 | XRay Report ---
SINGLE VIEW CHEST CLINICAL HISTORY: Postoperative hypoxia FINDINGS: An AP, portable, upright chest radiograph is compared to study dated 12/03/2022. The examinat ion is degraded by portable technique and apical lordotic positioning. The heart is enlarged. The pul monary vasculature is noncongested. Chronic interstitial thickening is similar to previous. There is bibasilar scarring/atelectasis. The lungs and pleural spaces are otherwise clear. No pneumothorax is seen. The skeletal structures are osteopenic. The bony thorax is grossly intact. IMPRESSION: Cardiomegaly with no acute cardiopulmonary abnormality identified. ACT 112: Negative or not required by law. Electronically signed by: Ramesh Barrett M.D. 12/29/2022 12:52 PM
[2022-12-29 13:41] LABS: Magnesium 1.8 mg/dl (1.7-2.4)
[2022-12-29] MEDS ORDERED: TRANEXAMIC ACID / 0.7% NACL 1,000 MG/100 ML BAG IV SCH (14:45)
[2022-12-29] MEDS: ceFAZolin 2000MG 2,000 MG/15 ML SYR IV SCH ×2 (14:53→23:06)
[2022-12-29] MEDS: ACETAMINOPHEN 500 MG TAB PO SCH ×2 (14:53→23:06)
[2022-12-29] MEDS: KETOROLAC TROMETHAMINE 15 MG/ML VIAL IV SCH ×2 (17:02→23:05)
[2022-12-29] MEDS: ASCORBIC ACID 500 MG TAB PO SCH (17:03)
[2022-12-29] MEDS ORDERED: METOPROLOL SUCC 25MG EXT REL TAB PO SCH ×2 (18:30→21:00)
[2022-12-29] MEDS ORDERED: NON-FORMULARY MEDICATION (Multivitamin Tablet) PO SCH (21:00)
[2022-12-29] MEDS ORDERED: lisinopril 10 MG TAB PO SCH (21:00)
[2022-12-29] MEDS ORDERED: SENNA 8.6 MG TAB PO SCH (21:00)
[2022-12-29] MEDS ORDERED: hydroCHLOROthiazide 25 MG TAB PO SCH (21:00)
[2022-12-30] MEDS: HYDROmorphone INJ 0.5 MG/0.5 ML SYR IV PRN ×2 (00:47→08:01)
[2022-12-30 05:17] LABS: Basophils # (auto) 0.02 K/uL (0-0.2); Basophils % (auto) 0.2 %; Hematocrit (blood only) 34.7 % (42.0-52.0); Hemoglobin 12.1 g/dl (14.0-18.0); Immature Granulocytes # (auto) 0.09 K/uL (0.01-0.20); Immature Granulocytes % (auto) 0.7 %; Lymphocytes # (auto) 1.29 K/uL (1.2-3.4); Lymphocytes % (auto) 10.1 %; Mean Corpuscular Hemoglobin 34.9 pg (25.0-34.0); Mean Corpuscular Hgb Conc 34.9 g/dL (32.0-36.0); Mean Platelet Volume 9.5 fL (9.4-12.4); Monocytes # (auto) 0.82 K/uL (0.11-0.59); Monocytes % (auto) 6.4 %; Neutrophils # (auto) 10.55 K/uL (1.40-6.50); Neutrophils % (auto) 82.6 %; Platelet Count 183 K/uL (130-400); RDW Coefficient of Variation 13.6 % (11.5-14.5); RDW Standard Deviation 49.8 fL (36.4-46.3); Red Blood Count 3.47 M/uL (4.70-6.10); White Blood Count 12.77 K/ul (4.8-10.8)
[2022-12-30] MEDS: ACETAMINOPHEN 500 MG TAB PO SCH (05:40)
[2022-12-30] MEDS: KETOROLAC TROMETHAMINE 15 MG/ML VIAL IV SCH ×2 (05:40→11:16)
[2022-12-30 05:54] LABS: BUN Creatinine Ratio 22.2 (10-20); Calcium 8.9 mg/dl (8.5-10.1); Creatinine Clr Calc Pharmacy 91.8 ml/min; Est GFR (African American) 99.2 ml/min; Est GFR (Non-African American) 85.6 ml/min; Potassium 4.5 mmol/L (3.5-5.1)
[2022-12-30] MEDS ORDERED: fentaNYL citrate PF 100 MCG/2 ML VIAL ONE (06:36)
[2022-12-30] MEDS ORDERED: MIDAZOLAM HCL 1 MG/ML 2ML VIAL ONE (06:36)
[2022-12-30] MEDS: MULTIVITAMIN TAB PO SCH (07:53)
[2022-12-30] MEDS: PANTOprazole 40 MG TAB PO SCH (07:54)
[2022-12-30] MEDS: ASCORBIC ACID 500 MG TAB PO SCH (07:54)
[2022-12-30] MEDS: TAMSULOSIN HCL 0.4 MG CAP PO SCH (07:55)
[2022-12-30] MEDS: DOCUSATE SODIUM 100 MG CAP PO SCH (07:55)
[2022-12-30] MEDS ORDERED: dexAMETHasone 10 MG in SYRINGE 0 ML IV SCH (08:00)
[2022-12-30] MEDS ORDERED: APIXABAN 2.5 MG TAB PO SCH (09:00)
[2022-12-30] MEDS ORDERED: METOPROLOL SUCC 25MG EXT REL TAB PO SCH (09:00)
[2022-12-30] MEDS: traMADol HCL 50 MG TABLET PO PRN (10:10)
--- NOTE | 2022-12-30 13:18 | Progress Notes ---
DATE OF SERVICE: 12/30/2022. SUBJECTIVE: A 72-year-old gentleman, postoperative day 1 from right total hip replacement. He devel oped rapid atrial fibrillation in the recovery room, was sent to the PCU/ICU for recovery. He has do ne well overnight. He has been given beta martinez and heart rate has come down nicely. He has got s ome mild to moderate pain at best. Therapy went well. No chest pain or shortness of breath. Not fe eling dizzy or lightheaded. OBJECTIVE: VITAL SIGNS: Temperature 36.6. Vital signs are stable. GENERAL: Shows a pleasant middle-aged male. He is sitting up in his bedside chair when I visited [facility] today. EXTREMITIES: Examination of the right hip reveals the dressing to be clean, dry and intact. Leg erlin gths were equal. He can dorsiflex and plantarflex his foot appropriately. He is neurologically inta ct. LABORATORY DATA: Hemoglobin 12.1. Hematocrit 34.7. White cell count 12.77. Electrolytes are stabl e. ASSESSMENT: A 72-year-old gentleman, postoperative day 1 from a right hip replacement with a rapid v entricular rate in the recovery room. He has been given a beta martinez. Heart rate has come down ni krzysztof. He is quite comfortable. Therapy went well. PLAN: 1. DVT prophylaxis including thigh-high TEDs, SCDs and back on his anticoagulation. We will put him on a lower dose while in the hospital and discharge him on his standard dose of Eliquis. 2. PT/OT, weightbear as tolerated. Right total hip protocol. 3. Pain control, doing okay with current pain regimen. 4. Disposition: Plan to discharge to home with some home health once medically stable. He is ortho pedically okay to go any time. He did well in therapy. We will check with the medicine doctors. If okay, probably discharge today. Job ID: [id number]
--- NOTE | 2022-12-30 15:29 | Hospitalist Progress Note ---
Date of Service December 30, 2022 Assessment & Plan (1) S/P total knee arthroplasty: (2) Degenerative joint disease of right hip: Plan: S/P right TKA by Dr. High on 12/29/2022 No postop complication Continue physical therapy and occupational therapy Continue incentive spirometry Hgb 12.1 (3) HTN (hypertension): Plan: BP stable Continue metoprolol, Lisinopril and HCTZ on discharge (4) Aortic root enlargement: (5) Atrial fibrillation with RVR: Plan: Possible related to postop right hip total knee placement Trial of IV Lopressor 5 mg x 1 and was starting on Cardizem drip for short time, then discontinued He has been on NSR since yesterday afternoon Continue to be on NSR Continue monitor metoprolol and Eliquis Will arrange for outpatient follow up with his cardiology Alcohol use Marijuana use Counseling on alcohol and Marijuana cessation Continue monitor DVT ppx: teds, scds, resume eliquis per primary team CODE: Full Disposition Stable from medicine standpoint to discharge Thank you for involving us in the care of Mr. Vyas. If you have any questions or concerns please do not hesitate to call. Admission and Anticipated Discharge Date Admission Date: December 29, 2022 Subjective Pt was seen and examined for follow up of afib and postop right total knee replacement Sitting in chair with no acute distress with at bedside Pt said that he feels good. He said that he was able to participate to physical therapy Tele monitor showed NSR Denies any chest pain, palpitation, dizziness and sob Review of Systems Review of Systems: All systems reviewed & are unremarkable except as noted in Subjective Physical Exam Physical Exam: General- No acute distress Head- atraumatic Eyes- PERRL, EOMI, ENT- oropharynx clear Neck- supple, no JVD Lungs- clear to auscultation Heart- regular rhythm; no murmur Abdomen- normal bowel sounds, soft, nontender Extremities- no calf tenderness Neuro- alert, oriented x 3; PERRL, EOMI; no facial palsy; no dysarthria Skin- warm & dry Results & Data Results & Data ([facility]) Vital Signs (Past 12 Hours) Vital Signs Temp Pulse Pulse Resp BP Pulse Ox O2 Del Method 12/30/22 14:58 36.6 C 60 18 133/81 97 12/30/22 11:09 36.6 C 60 18 133/81 97 Room Air 12/30/22 07:36 36.7 C 69 18 121/74 93 Room Air 12/30/22 04:00 65 18 93
--- NOTE | 2023-01-01 10:10 | Coding Query ---
CODING QUERY To promote full compliance with coding requirements relating to patient care, provider participation is requested in all cases of marketing clerk uncertainty. Please assist us with the question(s) below: Coding Question(s): The Hospitalist Progress Note on 12/30 documents, "S/P right TKA by Dr. High on 12/29/2022 No postop complication", but also documents regarding Atrial Fibrillation, "Atrial fibrillation with RVR: Plan: Possible related to postop right hip total knee placement Trial of IV Lopressor 5 mg x 1 and was starting on Cardizem drip for short time, then discontinued He has been on NSR since yesterday afternoon Continue to be on NSR Continue monitor metoprolol and Haileeadielgovind Will arrange for outpatient follow up with his cardiology". Please clarify below, in your clinical opinion, regarding Atrial Fibrillation: ( ) likely a postoperative complication causing worsening of the Atrial Fibrillation ( x ) Not a Postoperative Complication ( ) Other: Please Specify Physician's Response(s): Thank you Sailaja Lee Principal Diagnosis: "that condition established after study, to be chiefly responsible for occasioning the admission of the patient to the hospital for care." Co-Existing Principal Diagnosis: "when two or more diagnoses equally meet the criteria for principal diagnosis as determined by the circumstances of admission, diagnostic work up, and/or therapy provided, and the Alphabetic Index, Tabular List, or another coding guideline does not provide sequencing direction, any one of the diagnoses may be sequenced first." "When the physician has documented what appears to be a current diagnosis in the body of the record, but has not included the diagnosis in the final diagnostic statement, the physician should be asked whether the diagnosis should be added." (Source [facility] 2 QTR90. p3-4) JUDITH
--- NOTE | 2023-01-01 10:13 | Coding Query ---
CODING QUERY To promote full compliance with coding requirements relating to patient care, provider participation is requested in all cases of market stall vendor uncertainty. Please assist us with the question(s) below: Coding Question(s): The 12/29 Critical Care Consultation documents, " Postoperative hypoxemia: Obtain chest x-ray. Initiate incentive spirometry. Likely postoperative atelectasis. Patient relates a remote smoking history from age [age]. He was mostly a social smoker. Wean oxygen as able". Please specify below, in your clinical opinion, regarding Postoperative Hypoxemia and Postoperative Atelectasis: ( ) Postoperative Hypoxemia and Postoperative Atelectasis are likely Postoperative Complications ( x ) Postoperative Hypoxemia and Postoperative Atelectasis are Not Postoperative Complications ( ) Other: Please Specify Physician's Response(s): Thank you Sailaja Lee Principal Diagnosis: "that condition established after study, to be chiefly responsible for occasioning the admission of the patient to the hospital for care." Co-Existing Principal Diagnosis: "when two or more diagnoses equally meet the criteria for principal diagnosis as determined by the circumstances of admission, diagnostic work up, and/or therapy provided, and the Alphabetic Index, Tabular List, or another coding guideline does not provide sequencing direction, any one of the diagnoses may be sequenced first." "When the physician has documented what appears to be a current diagnosis in the body of the record, but has not included the diagnosis in the final diagnostic statement, the physician should be asked whether the diagnosis should be added." (Source [facility] 2 QTR90. p3-4) JUDITH
--- NOTE | 2023-01-12 19:39 | Discharge Summary ---
Date of Service January 12, 2023 Discharge Data Consultations 12/29/22 09:47 Consult Hospitalist Routine 12/29/22 11:15 Consult Shoe Repairman Routine Procedures Performed Operation Date: 12/29/22 07:00 Actual Procedures p Right Total Hip Arthroplasty--Uncemented(Right) - Chapo High MD Hospital Course (1) S/P total right hip arthroplasty: This is a 73 year old patient admitted on 12/29/22 and underwent total hip arthroplasty. He tolerated the procedure well and there were no complications. Transferred to the PACU post op, where he developed rapid atrial fibrillation. He was given lopressor and cardizem and later to the ICU for further care. The hospitalist service was consulted. He did convert back to normal sinus rhythm. He was given ancef for antibiotic prophylaxis. He was also given SCOT stockings, SCDs, and eliquis for DVT prophylaxis. Hemoglobin, hematocrit, and vital signs were monitored during his hospital stay and remained stable. Did not require any blood transfusions. By post op day #1 the patient was tolerating a regular diet, pain was reasonably controlled with oral pain medicine, and he was participating in physical therapy. On post op day #1 he was discharged home and set up with home health care. He was given printed discharge instructions including prescriptions for extra strength tylenol and tramadol. Continue physical therapy, weight bearing as tolerated. Continue hip precautions. Continue SCOT stockings. Follow up approximately 2 weeks post op or sooner if there are problems or concerns. Coding Level of Care Code None Diagnoses S/P total right hip arthroplasty Z96.641
== END 2022-12-30 15:45 | disposition home health service (06) | DRG 470 ==
LOC: 1E 05:01 → ASU 05:01
DX: I48.20 Chronic atrial fibrillation, unspecified; Z79.01 Long term (current) use of anticoagulants; F12.90 Cannabis use, unspecified, uncomplicated; I10 Essential (primary) hypertension; Z79.899 Other long term (current) drug therapy; J98.11 Atelectasis; M16.11 Unilateral primary osteoarthritis, right hip; Z87.891 Personal history of nicotine dependence; Z91.048 Other nonmedicinal substance allergy status; E87.6 Hypokalemia; R09.02 Hypoxemia; K21.9 Gastro-esophageal reflux disease without esophagitis; F10.90 Alcohol use, unspecified, uncomplicated

== ENCOUNTER 2023-03-12 06:17 | Observation (INO) ==
--- NOTE | 2023-03-05 09:27 | Anesthesiology Consultation ---
Date of Service March 05, 2023 Assessment & Plan (1) Encounter for pre-operative examination: Plan - check EKG STAT am DOS. - discharge summary 01/12/23 [facility]: "...transferred to the PACU post op, where he developed rapid atrial fibrillation. He was given lopressor and cardizem and later to the ICU for further care. The hospitalist service was consulted. He did convert back to normal sinus rhythm. He was given ancef for antibiotic pr ophylaxis. He was also given SCOT stockings, SCDs, and eliquis for DVT prophylaxis. Hemoglobin, hematocrit, and vital signs were monitored during his hospital stay and remained stable. Did not require any blood transfusions. By post op day #1 the patient was tolerating a regular diet, pain was reasonably controlled with oral pain medicine, and he was participating in physical therapy. On post op day #1 he was discharged home and set up with home health care..." - cardiology clearance 12/02/22: "...repeat nuclear stress imaging was negative for inducible ischemia...no further cardiac testing warranted prior to planned orthopedic surgery..." - cardiology 11/30/22 [facility]: "...moderate aortic root enlargement, 4.6 cm with mild ascending aortic enlargement, 4.2 cm...paroxysmal atrial fibrillation.. echo in Aug 2022 with mild hypokinesis of the mid and apical lateral wall, preserved LVEF 55-59%...nuclear stress testing last week, which unfortunately was non diagnostic due to caffeine consumption...await repeat nuclear stress images to R/O inducible ischemia..." - COVID screening: Per supplemental nurse on 03/02/2023: Pt reports onset of nasal congestion, runny nose, sore throat and occasional cough occasionally productive of clear or white sputum, denies hemoptysis or blood tinged sputum. He states symptoms are improving though he is considering calling his PCP to see if they advise any treatment in addition to current saline nasal spray use ahead of surgery. COVID test negative 03/03/23. He was advised to call office if symptoms are not resolved by day before surgery and/or if he does seek medical care to update chart. - Outpatient joint assessment: Patient is currently scheduled for inpatient pathway. If re-evaluated pending system levels during current pandemic/surgeon requests outpatient pathway, patient is not acceptable candidate for outpatient joint program from anesthesia standpoint. Chart Review Chart Review: Acceptable Risk for Surgery and Patient NOT seen in Pre Admission Testing History Surgery Operation Date: 03/12/23 08:50 Proposed Procedures p Right Total Knee Arthroplasty - Chapo High MD Height/Weight Height: 5 ft 11 in Weight: 95.254 kg Allergies Allergy/AdvReac Type Severity Reaction Status Date / Time formaldehyde Allergy Rash Verified 12/29/22 05:28 Medications Home Medications Medication Instructions Recorded Confirmed Last Taken Wheeled Walker #1 ea 12/03/22 12/29/22 Unknown apixaban 5 mg tablet (Eliquis) 5 mg PO BID 12/03/22 03/02/23 12/26/22 08:00 hydrochlorothiazide 12.5 mg tablet 12.5 mg PO QPM 12/03/22 03/02/23 12/28/22 08:00 lisinopril 10 mg tablet 10 mg PO QAM 12/03/22 03/02/23 12/28/22 08:00 metoprolol succinate 25 mg 25 mg PO QPM 12/03/22 03/02/23 12/28/22 20:00 tablet,extended release 24 hr multivitamin 1 tab PO QPM 12/03/22 03/02/23 12/28/22 08:00 omeprazole 20 mg capsule,delayed 20 mg PO QAM 12/03/22 03/02/23 12/29/22 04:00 release Past Medical History Medical History (Updated 03/05/23 @ 09:10 by Qiana Cantu PA-C) Aortic root enlargement 4.6 cm, 4.2 mild ascending aortic enlargement Atrial enlargement, right Chronic a-fib Degenerative joint disease of right hip Diverticulosis GERD (gastroesophageal reflux disease) controlled, stable per pt Hearing loss left ear History of sciatica HTN (hypertension) controlled, stable per pt Hypokalemia IBS (irritable bowel syndrome) Neuropathy feet Pain, dental reason for abx Postoperative hypoxemia Sleep apnea Past Surgical History Surgical History (Updated 03/05/23 @ 09:11 by Qiana Cantu PA-C) History of arthroscopy of left knee History of carpal tunnel surgery of right wrist History of colonoscopy History of toe surgery for ingrown toenail History of total right hip arthroplasty 12/29/2223 Grade 1 view with glidescope 4, ETT 8. S/P medial meniscectomy of left knee Social History Smoking Status: Former smoker Do You Dip or Chew Tobacco: No Smoking End Date: 30 YEARS AGO Hx Alcohol Use: Yes Alcohol type: beer, wine and hard liquor alcohol intake frequency: 0-2 drinks per day Hx Substance Use: Yes substance use type: marijuana Last Used Substance: Unknown Last Used Substance Other:: BLANCACorby Lab Results Anesthesia Preop Results Results Anesthesia Widget: WBC 8.57 K/ul (4.8-10.8) 03/03/23 Hgb 15.2 g/dl (14.0-18.0) 03/03/23 Hct 45.4 % (42.0-52.0) 03/03/23 Plt 218 K/uL (130-400) 03/03/23 Na 138 mmol/L (136-145) 03/03/23 K 3.4 mmol/L (3.5-5.1) L 03/03/23 Cl 102 mmol/L (98-107) 03/03/23 CO2 28 mmol/L (21-32) 03/03/23 BUN 17 mg/dl (6-23) 03/03/23 Creat 0.94 mg/dl (0.6-1.4) 03/03/23 Glucose Level 136 mg/dl (70-99(Fasting)) H 03/03/23 PT 10.9 Seconds (9.0-12.0) 03/03/23 PTT 39.3 Seconds (21.0-31.0) H 03/03/23 INR 1.0 (0.9-1.1) 03/03/23 Blood Type O Positive 03/03/23 Antibody Screen NEGATIVE 03/03/23 Testing Chest X-Ray Date: 12/29/22 *1view* Cardiomegaly with no acute cardiopulmonary abnormality Echocardiogram Date: 09/11/22 EF 55-59% Mild hypokinesis of mid and apical lateral wall Grade I diastolic dysfunction Moderate cLVH Moderately enlarged LA Mild mitral regurgitation Moderately enlarged aortic root at sinuses of Valsalva measuring 4.7 cm Mildly enlarged ascending aorta at 4.3 cm No significant change vs 08/06/21 echo Stress Test Date: 11/27/22 MPHR 52% negative for inducible ischemia Other Testing Event monitor 09/14/22 Predominant underlying rhythm: sinus rhythm Afib 5% burden ranging 76-176 bpm with associated symptomatic patient events Occasional isolated SVEs Rare SVE couplets and SVE triplets Occasional isolated VEs Rare VE couplets and VE triplets Ventricular bigeminy and trigeminy
[~2023-03-12 06:17] MED LIST: ACETAMINOPHEN 500 MG TAB PO SCH; BUPIVACAINE LIPOSOME/PF 266 MG, BUPIVACAINE/EPINEPHRINE 50 ML, SODIUM CHLORIDE 0.9% PF ... INFIL SCH; CeleBREX 200 MG CAP PO SCH; FAMOTIDINE 20 MG TAB PO SCH; LR 500ML BOLUS, THEN 15ML/HR IV SCH; LR 60ML/HR IV SCH; METOCLOPRAMIDE HCL 10 MG TABLET PO SCH; TRANEXAMIC ACID 1,000 MG **IV Intra-op IV SCH; ceFAZolin 2000MG 2,000 MG/15 ML SYR IV SCH; dexAMETHasone**PF** 10 MG/ML VIAL IV SCH
[2023-03-12] MEDS ORDERED: ROPIVACAINE 0.5% 5 MG/ML 30 ML VIAL ONE (06:31)
[2023-03-12] MEDS ORDERED: BUPIVACAINE 0.5 % 5 MG/1 ML PF 10ML VIAL ONE (06:31)
[2023-03-12] MEDS ORDERED: MIDAZOLAM HCL 1 MG/ML 2ML VIAL ONE (06:32)
[2023-03-12] MEDS ORDERED: fentaNYL citrate PF 100 MCG/2 ML VIAL ONE (06:33)
--- NOTE | 2023-03-12 06:48 | History & Physical Bridge Note ---
Date of Service March 12, 2023 History & Physical Bridge Note I have examined the patient, reviewed the History & Physical and in the interval since the performance of the History & Physical I have noted the following changes of clinical significance: no changes noted
[2023-03-12] MEDS ORDERED: ePHEDrine sulfate 50 MG/ML AMP IV PRN (07:51)
[2023-03-12] MEDS ORDERED: fentaNYL citrate PF 100 MCG/2 ML VIAL IV PRN (07:51)
[2023-03-12] MEDS ORDERED: ATROPINE SULFATE 0.1 MG/ML 10ML SYR IV PRN (07:51)
[2023-03-12] MEDS ORDERED: ONDANSETRON INJ 2 MG/ML 2 ML VIAL IV PRN ×2 (07:51→11:40)
[2023-03-12] MEDS ORDERED: BUPIVACAINE/EPINEPHRINE 0.25% 1:200,000 30 ML VIAL ONE (08:30)
[2023-03-12] MEDS ORDERED: SODIUM CHLORIDE 0.9% PF 50 ML VIAL ONE (08:31)
[2023-03-12] MEDS ORDERED: BUPIVACAINE LIPOSOME 1.3% 266 MG/20 ML VIAL ONE (08:32)
[2023-03-12] MEDS ORDERED: PROPOFOL IV EMULSION 10 MG/ML 20 ML VIAL IV ONE (09:18)
--- NOTE | 2023-03-12 10:33 | Operative Report ---
PG Post Operative Report Pre & Post Diagnosis Operation Date: 03/12/23 08:40 Pre-Op Diagnosis: Right Knee Degenerative Joint Disease Post-Op Diagnosis: Right Knee Degenerative Joint Disease I identified the patient and participated in the time-out.: Yes Procedure Operation Date: 03/12/23 08:40 Actual Procedures p Right Total Knee Arthroplasty(Right) - Chapo High MD Surgeon Chapo High MD Director Cardiovascular Matt Mclaughlin PA-C Estimated Blood Loss 50 Findings Consistent with Post-Op Diagnosis Operative findings advanced right knee tricompartment DJD. He had extensive grade 4 [id number] disease in all 3 compartments. Specimens Right knee sent for pathology Anesthesia Type Spinal MAC Complications none Disposition Accompanied Patient To Recovery: No Indications Patient 73-year-old gentleman has had a long history of bilateral knee pain discomfort as well as some hip problems. He underwent hip replacement several months ago. He continues to be limited by knee pain. The right knee is worse than the left. X-rays show advanced tricompartment DJD. Elected proceed with total knee arthroplasty. Description of Procedure Operative implants consist of: 1. Biomet Vanguard size 80 right posterior stabilized femoral component. 2. Biomet size 83 tibial tray. 3. 10 mm posterior stabilized polyethylene insert. 4. 34 x 8 all poly patella. I attest to the content of the Intraoperative Record and any orders documented therein. Any exceptions are noted below.
--- NOTE | 2023-03-12 10:59 | Anesthesiology Progress Note ---
Date of Service March 12, 2023 Anesthesia Post Procedure Vital Signs Vital Signs: Temp Pulse Pulse Resp BP Pulse Ox O2 Del Method 03/12/23 10:45 69 18 109/67 91 Room Air 03/12/23 10:35 69 16 100/68 94 Room Air 03/12/23 10:28 97.0 F L 70 14 107/60 92 Room Air 03/12/23 06:47 97.7 F 68 18 138/93 92 Room Air Pain Intensity Right Knee: Pain Intensity: 0 Transfer of Care Handoff Completed per policy Notes Mental Status: alert / awake / arousable and participated in evaluation Patient Amnestic to Procedure: Yes Nausea / Vomiting: adequately controlled Pain: adequately controlled Airway Patency, RR, SpO2: stable & adequate BP & HR: stable & adequate Hydration State: stable & adequate Neuraxial Anesthesia: was administered and sensory block is resolving Anesthetic Complications: no major complications apparent and Pt Satisfied with anesthetic care
--- NOTE | 2023-03-12 11:13 | XRay Report ---
RIGHT KNEE 2 VIEWS History: Right total knee arthroplasty. Degenerative arthritis. Postop. FINDINGS: The patient is status post a right total knee arthroplasty. The hardware is intact. No frac ture or dislocation. Skin angi are in place. IMPRESSION: Right total knee arthroplasty. No evidence for hardware complication. ACT 112: Negative or not required by law. Electronically signed by: Aidan De La Paz M.D. 03/12/2023 11:12 AM
[2023-03-12] MEDS ORDERED: bisacodyL 10 MG SUPP PR PRN (11:40)
[2023-03-12] MEDS ORDERED: ALUMINUM/MAGNESIUM SUSP 30 ML UDC PO PRN (11:40)
[2023-03-12] MEDS ORDERED: MAGNESIUM HYDROXIDE SUSP 30 ML UDC PO PRN (11:40)
[2023-03-12] MEDS ORDERED: NALOXONE HCL 0.4 MG/1 ML VIAL/CARP IV PRN (11:40)
[2023-03-12] MEDS ORDERED: METOCLOPRAMIDE HCL INJ 5 MG/ML 2 ML VIAL IV PRN (11:40)
[2023-03-12] MEDS ORDERED: oxyCODONE HCL IR 5 MG TAB (IMMEDIATE RELEASE) PO PRN (11:40)
[2023-03-12] MEDS ORDERED: HYDROmorphone INJ 0.5 MG/0.5 ML SYR IV PRN (11:40)
[2023-03-12] MEDS: SODIUM CHLORIDE 0.9% 1000ML 1,000 ML IV SCH ×2 (12:04→22:01)
[2023-03-12] MEDS: KETOROLAC TROMETHAMINE 15 MG/ML VIAL IV SCH ×3 (12:05→23:15)
[2023-03-12] MEDS: ACETAMINOPHEN 500 MG TAB PO SCH ×2 (14:26→20:31)
--- NOTE | 2023-03-12 14:33 | Operative Report ---
PG Post Operative Report Pre & Post Diagnosis Operation Date: 03/12/23 08:40 Pre-Op Diagnosis: Right Knee Degenerative Joint Disease Post-Op Diagnosis: Right Knee Degenerative Joint Disease I identified the patient and participated in the time-out.: Yes Procedure Operation Date: 03/12/23 08:40 Actual Procedures p Right Total Knee Arthroplasty(Right) - Chapo High MD Surgeon Chapo High MD Dough Mixer Matt Mclaughlin PA-C Estimated Blood Loss 50 Findings Consistent with Post-Op Diagnosis Operative findings reveal advanced right knee DJD. He had extensive grade 4 [id number] disease in all 3 compartments. He had a chronic ACL deficiency. Osteophytes in all 3 compartments. Moderate-sized joint effusion. Specimens Right knee sent for pathology Anesthesia Type Spinal MAC Complications none Disposition Accompanied Patient To Recovery: No Indications Patient 73-year-old gentleman has a long history of multiple joint problems and arthritic changes. He recently underwent a right hip replacement done well. Continue to be limited by bilateral knee pain discomfort right side greater than left. He failed conservative measures and elected proceed with right total knee arthroplasty. Description of Procedure Operative implants consist of: 1. Biomet Vanguard size 80 right posterior stabilized femoral component. 2. Biomet size 83 tibial tray. 3. 10 mm posterior stabilized polyethylene insert. 4. 34 x 8 and half all poly patella. The patient was taken the operating, identified, placed on the operating table supine position protectors were properly padded. IV antibiotics tried by anesthesia team. A spinal anesthetic and abductor canal block had provided holding area. Arizmendi catheter was placed in sterile fashion. Right thigh high t ourniquet was then placed in the right lower extremity then prepped and draped in usual sterile fashion. The right leg was elevated and exsanguinated with use of an Esmarch and the tourniquet was placed at 300 mmHg. An anterior approach of the right knee was then performed through a longitudinal incision centered over the patella. Sharp dissection Through subcutaneous tissue down the extensor mechanism. A medial parapatellar arthrotomy incision was made. Some subperiosteal dissection was carried out medially. The fat pad was dissected beneath patella tendon. Lateral patellofemoral ligament was released. Patella subluxated laterally and the knee was flexed. The osteophytes were taken off distal femur. The ACL was absent. The PCL was released from distal femur the tibia subluxated anteriorly. The external tibial alignment jig was then placed in the interface the tibia and adjusted 14 mm medially. Proximal tibial cut was made essentially flush with the most deficient aspect of the medial and lateral tibial plateaus. The tibia was then sized to a size 83. Attention was then drawn to the femur. The distal femur where the sharp drop with intramedullary canal was suction. A right 5 degree valgus cutting guide was placed. Distal femoral cutting block was pinned in place. Distal femoral cut was made to take an additional 3 mm of bone off distal femur. Femur was then sized to a size 80. The AP cutting block was pinned parallel to the epicondylar axis which was 3 degrees of external rotation. The anterior cut, anterior chamfer, posterior cut, posterior chamfer cuts were made. The box cutting guide was placed in just slight lateral and the box cut was made. The knee was flexed. The remnants of the medial lateral menisci were excised. The osteophytes taken off the posterior aspect the femur. Trial femoral component was placed. Tibial tray was pinned in maximum external rotation and the drill and stem punch were used to create defect in proximal tibia for the tibial tray. The knee was then trialed and the 10 mm insert fit most appropriately. Attention drawn the patella. The patella was cleaned of all soft tissues. Patella thickness measured 29 mm in thickness and was cut down to 17. Was sized to a size 34 patella. The lug holes were drilled for the 34 patella. Lateral osteophytes removed. Patella button was placed. Knee was taken through range of motion patella tracked nicely with no thumbs test. Attention drawn to placing permanent components. All trial components were removed. A bone plug was placed in the distal femur limit blood loss. Double batch Palacos G cement was mixed. Biomet Wein der Wocheguard size 80 right posterior stabilized femoral component, size 83 tibial tray, 10 mm posterior stabilized polyethylene insert, 34 x 8 and half all Paller patella then cemented in place. Knee was brought out in full extension till cement hardened. Final cement check was then performed. The pericapsular tissues were injected with total 100 cc of combination of 20 cc of Exparel, 30 cc normal saline, 50 cc of quarter percent Marcaine with epinephrine. Patient did receive 1 g tranexamic acid. The tourniquet was then let down for final tourniquet time of 54 minutes. Hemostasis assured use electrocautery. The extensor mechanism then closed with combination 1 PDS suture and 1 Vicryl suture in a [id number] fashion. Extensor mechanism checked found to be intact the subcutaneous tissue then closed with 2 Dexon suture fashion skin was closed skin angi. Leg was then cleaned and dried and sterile dressed with Xeroform, 4 fours, sterile cast padding, Shane bandage were applied. Patient then transferred to the recovery room in stable condition. The patient tolerated the procedure well and there were no complications. Matt Mclaughlin, my physician civil engineering assistant, was present for the entire procedure. His assistance was essential and required for appropriate patient positioning, prepping and draping, surgical exposure, performing the technical details of the operation, placement the implants, closure of the wound, and placement of the sterile bandage. I attest to the content of the Intraoperative Record and any orders documented therein. Any exceptions are noted below.
--- NOTE | 2023-03-12 15:29 | Electrocardiogram Report ---
Test Reason : Blood Pressure : / mmHG Vent. Rate : 068 BPM Atrial Rate : 068 BPM P-R Int : 190 ms QRS Dur : 086 ms QT Int : 422 ms P-R-T Axes : 009 -15 001 degrees QTc Int : 448 ms Normal sinus rhythm Inferior infarct (cited on or before 03-DEC-2022) possible Anterior infarct , age undetermined Abnormal ECG When compared with ECG of 29-DEC-2022 09:28, Sinus rhythm has replaced Atrial fibrillation Vent. rate has decreased BY [address] no longer depressed in Anterior leads Nonspecific T wave abnormality, improved in Anterolateral leads Confirmed by Jez Charles ([id number]) on 03/12/2023 3:28:46 PM Referred By: Chapo High Confirmed By:Skinny Charles
[2023-03-12] MEDS ORDERED: TRANEXAMIC ACID / 0.7% NACL 1,000 MG/100 ML BAG IV SCH (16:30)
[2023-03-12] MEDS: ceFAZolin 2000MG 2,000 MG/15 ML SYR IV SCH ×2 (16:47→23:16)
[2023-03-12] MEDS: ASCORBIC ACID 500 MG TAB PO SCH (16:49)
[2023-03-12] MEDS: SENNA 8.6 MG TAB PO SCH (20:30)
[2023-03-12] MEDS: DOCUSATE SODIUM 100 MG CAP PO SCH (20:31)
[2023-03-12] MEDS ORDERED: METOPROLOL SUCC 25MG EXT REL TAB PO SCH (21:00)
[2023-03-12] MEDS ORDERED: NON-FORMULARY MEDICATION (Multivitamin Tablet) PO SCH (21:00)
[2023-03-12] MEDS ORDERED: hydroCHLOROthiazide 25 MG TAB PO SCH (21:00)
[2023-03-12] MEDS ORDERED: SENNA 8.6 MG TAB PO SCH (21:00)
[2023-03-13] MEDS: KETOROLAC TROMETHAMINE 15 MG/ML VIAL IV SCH (06:14)
[2023-03-13 06:48] LABS: Hematocrit (blood only) 34.6 % (42.0-52.0); Hemoglobin 11.8 g/dl (14.0-18.0); Mean Corpuscular Hemoglobin 33.9 pg (25.0-34.0); Mean Corpuscular Hgb Conc 34.1 g/dL (32.0-36.0); Mean Corpuscular Volume 99.4 fL (80.0-100.0); Mean Platelet Volume 9.5 fL (9.4-12.4); Platelet Count 249 K/uL (130-400); RDW Coefficient of Variation 12.3 % (11.5-14.5); RDW Standard Deviation 44.5 fL (36.4-46.3); Red Blood Count 3.48 M/uL (4.70-6.10); White Blood Count 18.91 K/ul (4.8-10.8)
[2023-03-13 07:08] LABS: BUN Creatinine Ratio 21.4 (10-20); Calcium 8.8 mg/dl (8.6-10.3); Creatinine Clr Calc Pharmacy 115.4 ml/min; Est GFR (African American) 109.3 ml/min; Est GFR (Non-African American) 94.3 ml/min; Potassium 3.8 mmol/L (3.5-5.1)
[2023-03-13] MEDS ORDERED: dexAMETHasone 10 MG in SYRINGE 0 ML IV SCH (08:00)
[2023-03-13] MEDS: SENNA 8.6 MG TAB PO SCH (08:03)
[2023-03-13] MEDS: ASCORBIC ACID 500 MG TAB PO SCH (08:03)
[2023-03-13] MEDS: DOCUSATE SODIUM 100 MG CAP PO SCH (08:03)
[2023-03-13] MEDS: ACETAMINOPHEN 500 MG TAB PO SCH (08:04)
--- NOTE | 2023-03-13 08:12 | Progress Notes ---
DATE OF SERVICE: 03/13/2023. SUBJECTIVE: A 73-year-old gentleman, postoperative day 1 from a right knee replacement. He is doing well. Pretty good night. Pain is controlled. No chest pain or shortness of breath. Not feeling d kumar or lightheaded. Hoping to go home. OBJECTIVE: VITAL SIGNS: Temperature 36.7. Vital signs are stable. GENERAL: Shows a pleasant, elderly male. He is sitting up on bed this morning. Looks comfortable. LUNGS: Clear to auscultation. HEART: Regular rate and rhythm. ABDOMEN: Soft, nontender, nondistended. EXTREMITIES: Grossly neurovascularly intact except as follows. Examination of the right leg reveals the dressing to be clean, dry and intact. He can dorsiflex and plantarflex his foot appropriately. NEUROLOGIC: He is neurologically intact. LABORATORY DATA: Hemoglobin 11.8. Hematocrit 34.6. Electrolytes are stable. ASSESSMENT: A 73-year-old gentleman, postoperative day 1 from right knee replacement, doing well. P ain is controlled. He is neurologically intact. PLAN: 1. DVT prophylaxis includes thigh-high TEDs, SCDs and back on his Eliquis. He is on a prophylactic dose today and a therapeutic dose on discharge. 2. PT/OT, weightbear as tolerated. Right total knee protocol. 3. Pain control, doing well with current pain regimen. 4. Disposition: Plan to discharge to home with some home health if he does okay in therapy today. Job ID: [id number]
[2023-03-13] MEDS ORDERED: PANTOprazole 40 MG TAB PO SCH (09:00)
[2023-03-13] MEDS ORDERED: TAMSULOSIN HCL 0.4 MG CAP PO SCH (09:00)
[2023-03-13] MEDS ORDERED: lisinopril 10 MG TAB PO SCH (09:00)
[2023-03-13] MEDS ORDERED: MULTIVITAMIN TAB PO SCH (09:00)
[2023-03-13] MEDS ORDERED: APIXABAN 2.5 MG TAB PO SCH (11:00)
--- NOTE | 2023-03-16 13:58 | Discharge Summary ---
Date of Service March 16, 2023 Discharge Data Procedures Performed Operation Date: 03/12/23 08:40 Actual Procedures p Right Total Knee Arthroplasty(Right) - Chapo High MD Hospital Course (1) Status post total right knee replacement: This is a 73 year old patient admitted on 03/12/23 and underwent total knee arthroplasty. He tolerated the procedure well and there were no complications. Transferred to the PACU post op and later to the orthopedic floor for further care. He was given ancef for antibiotic prophylaxis. He was also given SCOT stockings, SCDs, and eliquis for DVT prophylaxis. Hemoglobin, hematocrit, and vital signs were monitored during his hospital stay and remained stable. Did not require any blood transfusions. There were no complications during his hospital stay. By post op day #1 the patient was tolerating a regular diet, pain was reasonably controlled with oral pain medicine, and he was participating in physical therapy. On post op day #1 the patient was discharged home and set up with home health care. He was given printed discharge instructions including prescriptions for extra strength tylenol, aspirin, cefadroxil, zofran, senokot, oxycodone, and flomax. Continue physical therapy, weight bearing as tolerated. Continue SCOT stockings. Follow up approximately 2 weeks post op or sooner if there are problems or concerns. Coding Level of Care Code None Diagnoses Status post total right knee replacement Z96.651
== END 2023-03-13 11:36 | disposition home health service (06) ==
LOC: 3E 06:17 → ASU 06:17